=== PATIENT | female | born 2000 | race Caucasian/White ===

== ENCOUNTER 2022-10-23 14:11 | Emergency (ER) | payer OTHER, BC ==
[2022-10-23] MEDS ORDERED: Ibuprofen 200 MG TAB ONE (15:41)
== END 2022-10-23 15:42 | disposition home or self-care (01) ==
LOC: CSHERS 14:11
DX: S20.212A Contusion of left front wall of thorax, initial encounter (principal); S39.012A Strain of muscle, fascia and tendon of lower back, initial encounter; V40.5XXA Car driver injured in collision with pedestrian or animal in traffic accident, initial encounter
CPT/HCPCS: 71046; 72100